=== PATIENT | male | born 1980 | race African-American/Black ===

== ENCOUNTER 2020-08-21 06:50 | Emergency (ER) | payer OTHER ==
[~2020-08-21] VITALS: Ht 177.8 cm; Wt 66.0 kg
[2020-08-21] MEDS ORDERED: BACITRACIN ZINC OINT UDPKT TOP ONE (07:15)
[2020-08-21] MEDS ORDERED: TETANUS, DIPHTHERIA, PERTUSSIS VAC/PF 0.5ML (>7YR OLD) IM ONE (07:15)
[2020-08-21 07:49] VITALS: BP 126/78
== END 2020-08-21 07:50 ==
LOC: ER 07:07
DX: S00.81XA Abrasion of other part of head, initial encounter (principal); X58.XXXA Exposure to other specified factors, initial encounter; Y93.89 Activity, other specified; Y92.89 Other specified places as the place of occurrence of the external cause; Y99.8 Other external cause status
CPT/HCPCS: 90471; 90715; 99283